=== PATIENT | male | born 1980 | race Two or more races ===

== ENCOUNTER 2019-09-20 15:45 | Emergency (ER) | payer SELFPAY ==
[~2019-09-20] VITALS: Ht 185.4 cm; Wt 95.3 kg
[2019-09-20 16:25] VITALS: BP 120/83
[2019-09-20] MEDS ORDERED: METHOCARBAMOL 500 MG TAB PO ONE (18:00)
[2019-09-20] MEDS ORDERED: NEOMYCIN-BACITRACIN-POLYM 15GM TOP OINT TOP ONE (18:00)
[2019-09-20] MEDS ORDERED: KETOROLAC TROMETH 60MG/2ML VIAL IM ONE (18:00)
[2019-09-20] MEDS ORDERED: BACITRACIN INJ 50000 UNIT VIAL TOP ONE (18:00)
[2019-09-20] MEDS ORDERED: NEOMYCIN-BACITRACIN-POLYM UNITDOSE PKG TOP OINT TOP ONE (18:15)
== END 2019-09-20 18:14 | disposition home or self-care (01) ==
LOC: ER 15:45
DX: S09.90XA Unspecified injury of head, initial encounter (principal); S51.812A Laceration without foreign body of left forearm, initial encounter; S51.811A Laceration without foreign body of right forearm, initial encounter; F17.210 Nicotine dependence, cigarettes, uncomplicated; Y08.89XA Assault by other specified means, initial encounter; Y93.89 Activity, other specified; Y99.8 Other external cause status; Y92.89 Other specified places as the place of occurrence of the external cause
CPT/HCPCS: 70450; 96372; 99284; J1885